=== PATIENT | male | born 1925 | race Caucasian/White ===

== ENCOUNTER 2016-06-15 07:46 | Day surgery (SDC) | payer MEDICARE, OTHER ==
[2016-06-15] VITALS (21 sets, daily range): BP systolic 95–115; BP diastolic 54–79; PULSE 54–64; RESP 13–64; Ht 172.7 cm; Wt 83.1 kg
[~2016-06-15] VITALS: Ht 172.7 cm; Wt 83.1 kg
[~2016-06-15 07:46] MED LIST: ALLO100T64 PO; ASPI-664 PO; ATOR80TA75 PO; ISOS30TA55 PO; OMEP20CA16 PO; TRAM100T2 PO
[2016-06-15] MEDS ORDERED: PRAV20TA63 PO (08:25)
[2016-06-15] MEDS ORDERED: ISOS60TA PO (08:25)
[2016-06-15] MEDS ORDERED: METO-448 PO (08:26)
[2016-06-15] MEDS ORDERED: NIT4 SL (08:27)
[2016-06-15 09:00] LABS: ADD SCAN DIFF NO
[2016-06-15 09:04] LABS: BASOPHIL # 0.1 10^3/ul (0.0-0.1); BASOPHILS % 0.7 % (0.0-2.0); EOSINOPHILS # 0.4 10^3/ul (0.0-0.5); EOSINOPHILS % 5.5 % (0.0-7.0); HEMATOCRIT 42.8 % (42.0-52.0); HEMOGLOBIN 13.9 g/dl (14.0-18.0); LYMPHOCYTES # 3.1 10^3/ul (0.8-2.9); MEAN CORPUSCULAR HGB CONC 32.5 g/dl (32.0-37.0); MEAN CORPUSCULAR VOLUME 89.2 fl (82.0-101.0); MEAN PLATELET VOLUME 9.4 fl (7.4-10.4); MONOCYTE # 0.8 10^3/ul (0.3-0.9); MONOCYTES % 10.2 % (0.0-11.0); NEUTROPHIL # 3.7 10^3/ul (1.6-7.5); NEUTROPHILS % 45.2 % (39.0-77.0); PLATELET COUNT 266 10^3/UL (140-415); RED CELL DISTRIBUTION WIDTH 13.2 % (11.5-14.5); WHITE BLOOD COUNT 8.1 10^3/ul (4.8-10.8)
[2016-06-15 09:17] LABS: POTASSIUM 4.5 mmol/L (3.5-5.1)
[2016-06-15 09:21] LABS: CHOL/HDL RATIO 3.7 RATIO
[2016-06-15 09:24] LABS: CALCIUM 9.3 mg/dl (8.4-10.2); CREATININE 1.28 mg/dl (0.61-1.24); INR 0.98
[2016-06-15 09:25] LABS: PARTIAL THROMBOPLASTIN TIME 28.8 Sec (25.0-35.0)
--- NOTE | 2016-06-15 09:48 | RADRPT ---
PROCEDURE: XR Chest. CLINICAL INDICATION: Preoperative evaluation. TECHNIQUE: Single frontal chest x-ray. COMPARISON: Exam dated 06/18/2013. FINDINGS: The cardiomediastinal silhouette is within normal limits. The lungs are clear without focal consol idation, effusion, or pneumothorax. There are no acute osseous abnormalities. There is a deformity of the right posterior fifth rib. IMPRESSION: 1. No acute cardiopulmonary abnormality. RPTAT: GG .Matias Bacon MD, MD Date Time Electronically viewed and signed by .Matias Bacon MD, MD on 06/15/2016 09:47 .P/
[2016-06-15] MEDS ORDERED: IODIXANOL LOCM 100 ML BTL ONE (09:58)
[2016-06-15] MEDS ORDERED: HEPARIN 1000 UNITS/ML 10 ML INJ ONE (09:58)
[2016-06-15] MEDS ORDERED: FENTAnyl 50 MCG/ML VIAL ONE (09:58)
[2016-06-15] MEDS ORDERED: LIDOCAINE 1% (MDV) 20 ML INJ ONE (09:58)
[2016-06-15] MEDS ORDERED: NITROGLYCERIN (IC) 100 MCG/ML INJ ONE ×2 (09:59→10:02)
[2016-06-15] MEDS ORDERED: MIDAZOLAM 1 MG/ML 2 ML INJ ONE (09:59)
[2016-06-15] MEDS ORDERED: VERAPAMIL 5 MG INJ ONE (09:59)
[2016-06-15] MEDS ORDERED: SOD CHLORIDE 0.9% 500 ML ONE (10:02)
[2016-06-15] MEDS ORDERED: SOD CHLORIDE 0.9% 1,000 ML IV SCH (10:42)
[2016-06-15] MEDS ORDERED: morphine 2 MG INJ IV PRN (11:00)
[2016-06-15] MEDS ORDERED: ACETAMINOPHEN 325 MG TAB PO PRN (11:00)
[2016-06-15] MEDS ORDERED: ONDANSETRON 4 MG INJ IV PRN (11:00)
[2016-06-15] MEDS ORDERED: AL HYDROX/MG HYDROX/SIMETH 30 ML CUP PO PRN (11:00)
--- NOTE | 2016-06-15 20:35 | RADRPT ---
Vent Rate: 53 bpm RR Interval: 0 msec NE Interval: 240 msec QRS Duration: 78 msec QT Interval: 430 msec QTC Interval: 403 msec P-R-T [place]: 53 - -38 - 52 degrees Sinus bradycardia with 1st degree AV block Left axis deviation Pulmonary disease pattern Abnormal ECG Electronically Signed By: Nathaniel Espinal [id number]
--- NOTE | 2016-06-15 21:54 | CARRPT ---
DATE OF PROCEDURE: 06/15/2016 TYPE OF PROCEDURE: 1. Left heart catheterization. 2. Coronary angiography. 3. Measurement of left ventricular end diastolic pressure. ATTENDING PHYSICIAN: Palomo Espinal MD REFERRING PHYSICIAN: Dr. Malika Snider. INDICATION: Chest pain with positive stress test findings for anterior ischemia , high risk marker for cardiovascular events. TYPE OF ANESTHESIA: Conscious and local. BRIEF HISTORY: Mr. Jernigan is an 89-year-old male with history of hypertension and dyslipidemia who initially had complaints of shortness of breath and chest pain. The patient subsequently underwent a cardiac stress test revealing positive ischemia in anterior distribution. Given these findings, the patient referred for and presents today in order to undergo left heart catheterization to assess for the possibility of significant obstructive coronary artery disease lending to his symptoms of chest pain and positive stress test findings. PROCEDURE: After informed consent was obtained, the patient was brought to the [facility] cardiac catheterization lab where his right radial area was prepped and draped in usual sterile fashion. Lidocaine 2% was infiltrated into right radial area in order to achieve adequate anesthesia. Using modified Seldinger technique, the radial artery was cannulated and a 6- Azerbaijani arterial sheath was placed. A 6-[place]ij[place] JL3.5 catheter was used to cannulate the left main coronary ostium. With contrast injection, multiple views of the left coronary arterial system were obtained. JL3.5 was removed over guidewire, and a JL4 was used in an attempt to cannulate the right coronary arterial ostium. This proved unsuccessful. Subsequently, a multipurpose was used to successfully cannulate the right coronary arterial ostium. With contrast injection, multiple views of the right coronary arterial system obtained. removed over a guidewire and a 6-[place]zerbaijani pigtail was passed down the ascending artery into the left ventricle and left ventricular end-diastolic pressure was measured. No LV gram was undertaken due to elevated creatinine. The pigtail catheter was then pulled back across the aortic valve to assess for significant gradient, which there was not and removed. Subsequently, the patient's sheath was removed. TR band was applied. There were no noted complications. FINDINGS: Coronary angiography: Left main 4 mm 20% mid body stenosis. Circumflex proximally is a 3 mm vessel and in its mid distal portion has a 50% stenosis, eccentric appearing. There is a ramus branch, it is a 2.5 mm vessel with a mid body 20 to 30% stenosis. The LAD is 100% occluded shortly after takeoff and there is a small diagonal that bifurcates just at its sub 2 mm vessel with an ostial 78% stenosis. The right coronary artery proximally superior takeoff a 3 mm vessel and its proximal portion has approximately a 40% to 50% stenosis. The right coronary artery is free of significant focal stenoses until just before the PDA and posterolateral bifurcation and there is approximately a 30% stenosis. Dominant vessel gives off a 2.5 mm post-PDA and a 2 mm posterolateral branch with the PDA giving collateral flow to the LAD in grade II , recapitulating it all the way back to near the area of occlusion with a reasonably sized LAD via collateral flow with no intervening stenoses. Measurement of left ventricular end diastolic pressure of 23 to 27. No significant aortic stenosis by gradient. TOTAL FLUOROSCOPY TIME: 5 minutes. TOTAL CONTRAST: 30 mL. IMPRESSION: 1. Single vessel obstructive coronary artery disease involving 100% occlusion of the patient's LAD with right to left collateral flow recapitulating almost the entire LAD vessel grade II. 2. Moderate nonobstructive stenosis in right coronary artery. 3. Obstructive stenosis of a small diagonal and 100% occlusion of the left anterior descending. 4. Elevated left heart filling pressures of 25, 27. 5. No significant aortic stenosis by gradient. RECOMMENDATIONS: In light of procedure findings at this time would: 1. Maximize medical management. 2. Aggressive risk factor reduction. 3. The patient to be readmitted to the same day surgery center for post-cath observation and continued management of symptoms with probable discharge later this afternoon. Dictated By: PALOMO BARLOW/YANN Conf#: [id number] DID#: [id number] CC: MALIKA SNIDER MD;*EndCC* MTDD
== END 2016-06-15 15:00 | disposition home or self-care (01) ==
LOC: SDS 07:46
PROVIDERS: ATTEND Internal Medicine
DX: I25.10 Atherosclerotic heart disease of native coronary artery without angina pectoris (principal); I10 Essential (primary) hypertension; E78.5 Hyperlipidemia, unspecified; R94.39 Abnormal result of other cardiovascular function study
CPT/HCPCS: 71010; 80048; 80061; 85025; 85610; 85730; 93005; 93458; C1769; C1887; J1644; J2250; J3010; J7040; Q9967